=== PATIENT | male | born 1955 | race Caucasian/White ===

== ENCOUNTER 2019-11-25 07:20 | Inpatient (IN) | payer MEDICARE ==
[~2019-11-25] VITALS: Ht 167.6 cm; Wt 81.0 kg
[2019-11-25 07:27] VITALS: BP 133/67
[2019-11-25 08:13] LABS: HEMATOCRIT 37.1 % (42.0-52.0); MEAN CELL VOLUME 83.4 fl (80.0-94.0); MEAN CORPUSCULAR HGB 27.2 pg (27.0-31.0); MEAN CORPUSCULAR HGB CONC 32.6 g/dl (33.0-37.0); MEAN PLATELET VOLUME 10.1 fl (9.6-12.3); PLATELET COUNT AUTOMATED 329 10*3/uL (130-400); RED BLOOD COUNT 4.45 10*6/uL (4.50-5.90); RED CELL DISTRI WIDTH 12.4 % (0-14.5); WHITE BLOOD COUNT 21.8 10*3/uL (4.8-10.8)
[2019-11-25 08:26] LABS: ACT PARTIAL THROMBO TIME 26.2 SECONDS (20.0-32.1); INTERNATIONAL NORM RATIO 1.1 (2.0-3.5)
[2019-11-25 08:28] LABS: ALBUMIN 1.6 gm/dl (3.1-4.5); ALKALINE PHOSPHATASE 191 U/L (45-117); BUN 29 mg/dl (7-24); CHLORIDE 94 mmol/L (98-107); CREATININE 0.83 mg/dL (0.70-1.30); POTASSIUM 3.4 mmol/L (3.5-5.1); SGOT/AST 12 IU/L (3-35); SGPT/ALT 17 U/L (12-78); SODIUM 130 mmol/L (136-145); TOTAL PROTEIN 6.2 gm/dL (6.4-8.2)
[2019-11-25 08:50] LABS: PLATELET SUFFICIENCY NORMAL (NORMAL); TOTAL CELLS COUNTED 100 #CELLS
[2019-11-25 09:31] VITALS: BP 138/75
--- NOTE | 2019-11-25 10:30 | NUR ---
The assessment has been completed. RON URIOSTEGUI Time: 1029 A 64 year old MALE admitted to under services of KHRIS OLEARY DO, Pt. arrived via ambulatory from ER. Chief complaint: INJURY TO L KNEE, REPORTS HE WAS AT THE TRACK 2 WEEKS AGO AND FELL DUE TO THE FLOOR BEING STICKY . PAIN TO HIS R KNEE. STATES IT HAS GIVEN OUT ON HIM AT HOME AND HE HAS FALLEN. . RON URIOSTEGUI
[2019-11-25 10:40] VITALS: BP 134/61
--- NOTE | 2019-11-25 12:02 | NUR ---
PT TAKEN OFF FLOOR FOR MRI
--- NOTE | 2019-11-25 12:48 | NUR ---
CALLED PHARMACY TO SEND UP YSABEL
--- NOTE | 2019-11-25 12:48 | NUR ---
PT BACK FROM MRI
--- NOTE | 2019-11-25 13:55 | NUR ---
VASU MESSINA SUPERINTENDENT HORTICULTURE NOTIFIED OF MRI RESULTS. STATES SHE WILL PUT IN ORDERS.
[2019-11-25 15:24] LABS: BILIRUBIN NEGATIVE (NEGATIVE); BLOOD 1+ (NEGATIVE); CLARITY CLEAR (CLEAR); COLOR YELLOW (YELLOW); GLUCOSE 3+ (NEGATIVE); KETONE 3+ (NEGATIVE); SPECIFIC GRAVITY 1.015 (1.005-1.030)
[2019-11-25 15:25] LABS: BACTERIA 2+; LEUKO ESTERASE TRACE (NEGATIVE); MUCOUS 1+; NITRITE POSITIVE (NEGATIVE); UROBILINOGEN 0.2 E.U./dl (0.2-1.0); WBC 16-20 wbc/hpf (0-5)
--- NOTE | 2019-11-25 15:39 | NUR ---
PT MEDICATED FOR C/O 4/10 ACHING L KNEE PAIN. WILL CONTINUE TO MONITOR FOR RELIEF. VOICES NO OTHER CONCERNS. CALL LIGHT WITHIN REACH. BED ALRM ON.
[2019-11-25 16:00] VITALS: BP 128/56
--- NOTE | 2019-11-25 16:00 | NUR ---
PTS SISTER UPDATED ON PLAN OF CARE AND TRASNFER PER HIS REQUEST. QUESTIONS ANSWERED.
--- NOTE | 2019-11-25 16:30 | NUR ---
PT STATES TYLENOL MOSTLY EFFECTIVE
--- NOTE | 2019-11-25 18:27 | NUR ---
PT GIVEN MORPHINE FOR PAIN. PAIN IS IN LEFT KNEE RADIATING TO BACK OF LEG. PT RATES 7 OUT OF 10 ON SCALE
[2019-11-25 20:00] VITALS: BP 123/55
[2019-11-25 20:20] VITALS: BP 141/78
--- NOTE | 2019-11-25 20:20 | NUR ---
PATIENT ATTENDANT WILLIE CAME TO THIS RN AND STATED PATIENT SLID OFF OF THE BEDSIDE COMMODE ONTO THE FLOOR. PATIENT WAS LAYING IN THE FLOOR ON THE LEFT SIDE UPON ENTERING ROOM. PATIENT CALLED FOR HELP TO THE BEDSIDE COMMODE BUT INSISTED THE NURSES AID LEAVE FOR PRIVACY. MALIK TAPIA STOOD OUTSIDE OF THE DOOR AND WAITED FOR PATIENT TO LET HER KNOW WHEN HE WAS DONE. PATIENT DID NOT CALL FOR HELP, INSTEAD HE STATES HE SLID OFF OF THE BEDSIDE COMMODE ONTO THE FLOOR. PATIENT DENIES INJURIES OR HITTING HEAD. PATIENT WAS ASSISTED BACK INTO BED AND VITALS WNL. PATIENT WAS REMINDED THAT HE NEEDS ASSISTANCE AND TO PLEASE CALL FOR HELP. FALL RISK BAND WAS ON, STAR WAS ON THE DOOR, AND NON SLIP FOOTWEAR WAS INTACT. PATIENT VERBALIZED UNDERSTANDING. PATIENT WAS STILL INSISTING THAT THIS RN AND OLVIN KIRBY LEAVE ROOM SO PATIENT COULD STAND AND URINATE IN THE URINAL. PATIENT WAS REMINDED THAT HE NEEDS ASSISTANCE, BUT ASSURED THAT WE WOULD NOT LOOK AT HIS PRIVATE AREAS. PATIENT WAS ASSISTED BY BOTH RN'S WITH MAX ASSIST. PATIENT MADE COMFORTABLE IN BED. DENIES ANY PAIN. BED ALARM ON, BED IN LOWEST POSITION, CALL LIGHT IN REACH
--- NOTE | 2019-11-25 20:48 | NUR ---
PATIENT TRANSFERRED WITH [facility] AT THIS TIME. ALL BELONGINGS TAKEN WITH PATIENT.
--- NOTE | 2019-11-25 20:53 | NUR ---
REPORT CALLED TO ANNMARIE AT [facility] AT THIS TIME. ALL QUESTIONS ANSWERED
== END 2019-11-25 20:48 | disposition short-term general hospital (02) | DRG 913 ==
LOC: ED 07:20 → 4E 09:57 → EDHOLD 09:57 → 4E 10:18
PROVIDERS: Emergency Medicine; Registered Nurse; ADMIT Internal Medicine
DX: S89.92XA Unspecified injury of left lower leg, initial encounter (principal); E43 Unspecified severe protein-calorie malnutrition; L03.116 Cellulitis of left lower limb; N39.0 Urinary tract infection, site not specified; E87.1 Hypo-osmolality and hyponatremia; M00.9 Pyogenic arthritis, unspecified; E87.6 Hypokalemia; R73.9 Hyperglycemia, unspecified; Z80.9 Family history of malignant neoplasm, unspecified; W19.XXXA Unspecified fall, initial encounter; Y93.89 Activity, other specified; Y92.89 Other specified places as the place of occurrence of the external cause; Y99.8 Other external cause status; Z03.818 Encounter for observation for suspected exposure to other biological agents ruled out; Z68.28 Body mass index [BMI] 28.0-28.9, adult

== ENCOUNTER 2019-12-06 16:21 | Inpatient (IN) | payer MEDICARE, MEDICAID ==
[~2019-12-06] VITALS: Ht 167.6 cm; Wt 78.9 kg
[2019-12-06 16:28] VITALS: BP 138/62
[2019-12-06 17:18] LABS: BASO # 0.1 10*3/uL (0.0-0.1); BASO % 0.4 % (0.0-1.0); EOS # 0.3 10*3/uL (0.0-0.4); EOS % 1.8 % (1.0-4.0); HEMATOCRIT 30.7 % (42.0-52.0); LYMPH # 1.9 10*3/uL (1.3-4.4); LYMPH % 13.3 % (27.0-41.0); MEAN CELL VOLUME 84.3 fl (80.0-94.0); MEAN CORPUSCULAR HGB 27.2 pg (27.0-31.0); MEAN CORPUSCULAR HGB CONC 32.2 g/dl (33.0-37.0); MONO # 1.2 10*3/uL (0.1-1.0); MONO % 8.8 % (3.0-9.0); NEUT # 10.6 10*3/uL (2.3-7.9); NEUT % 74.9 % (47.0-73.0); PLATELET COUNT AUTOMATED 439 10*3/uL (130-400); RED BLOOD COUNT 3.64 10*6/uL (4.50-5.90); RED CELL DISTRI WIDTH 13.2 % (0-14.5); WHITE BLOOD COUNT 14.2 10*3/uL (4.8-10.8)
[2019-12-06 17:30] LABS: ALBUMIN 1.6 gm/dl (3.1-4.5); ALKALINE PHOSPHATASE 514 U/L (45-117); BUN 26 mg/dl (7-24); CHLORIDE 96 mmol/L (98-107); CREATININE 0.99 mg/dL (0.70-1.30); POTASSIUM 3.8 mmol/L (3.5-5.1); SGOT/AST 27 IU/L (3-35); SGPT/ALT 38 U/L (12-78); SODIUM 132 mmol/L (136-145); TOTAL PROTEIN 6.6 gm/dL (6.4-8.2); URIC ACID 4.5 mg/dL (3.5-7.2)
[2019-12-06 19:29] VITALS: BP 137/73
--- NOTE | 2019-12-06 19:40 | NUR ---
A 64, admitted to 5E, under the services of SHORTY Hernández DO with a diagnosis of CELLULITIS, HYPERGLYCEMIA, LEUKOCYTOSIS. Chief complaint is CELLULITIS. Patient arrived via bed from ER. Monitor applied. Initial assessment completed. Vital signs taken and recorded. SHORTY HERNÁNDEZ DO notified of admission to the unit. Orders received. See assessment for past medical history, medications and allergies. Patient and/or family oriented to unit. [facility] visitation policy reviewed. Clothing/patient valuable form completed. GRICELDA LIM
[2019-12-06 19:45] VITALS: BP 138/70
[2019-12-06] MEDS ORDERED: COLCHICINE0.6 M1 PO (19:58)
[2019-12-06] MEDS ORDERED: LANTUS SOL100 UNIT/1 SQ (20:00)
[2019-12-06] MEDS ORDERED: HUMALOG100 UNIT/2 SQ (20:02)
[2019-12-06] MEDS ORDERED: NAPROSYN500 MG PO (20:03)
--- NOTE | 2019-12-06 20:29 | NUR ---
DR. SAEZ NOTIFIED OF COMPLETE HOME MEDICATIONS. ALSO NOTIFIED FOR NEED FOR WOUND ORDERS.
--- NOTE | 2019-12-06 20:30 | NUR ---
PT OFF TO CT
--- NOTE | 2019-12-06 20:50 | NUR ---
PT BACK FROM CT
--- NOTE | 2019-12-06 22:00 | NUR ---
PT WATCHING TV. NO COMPLAINTS. CALL LIGHT IN REACH
--- NOTE | 2019-12-06 23:12 | NUR ---
NORCO GIVEN FOR LEFT LEG PAIN DUE TO "CELLULITIS AND GOUT" PER PT. PAIN RATED 7/10. CALL LIGHT IN REACH. WILL MONITOR FOR EFFECTIVENESS.
[2019-12-07] VITALS (10 sets, daily range): BP systolic 118–144; BP diastolic 49–71
--- NOTE | 2019-12-07 00:06 | NUR ---
PATIENT STATED NORCO WAS EFFECTIVE. WILL CONTINUE TO MONITOR.
--- NOTE | 2019-12-07 02:28 | NUR ---
Patient resting quietly with no c/o discomfort. Respirations easy and regular. Vital signs stable. No overt distress. DALJIT RYDER
--- NOTE | 2019-12-07 06:02 | NUR ---
NOTIFIED DR MAURER'S ANSWERING SERVICE OF CONSULT.
[2019-12-07 06:03] LABS: BASO # 0.1 10*3/uL (0.0-0.1); BASO % 0.3 % (0.0-1.0); EOS # 0.3 10*3/uL (0.0-0.4); EOS % 2.3 % (1.0-4.0); HEMATOCRIT 30.8 % (42.0-52.0); LYMPH # 1.8 10*3/uL (1.3-4.4); LYMPH % 11.8 % (27.0-41.0); MEAN CELL VOLUME 85.3 fl (80.0-94.0); MEAN CORPUSCULAR HGB 26.9 pg (27.0-31.0); MEAN CORPUSCULAR HGB CONC 31.5 g/dl (33.0-37.0); MEAN PLATELET VOLUME 9.2 fl (9.6-12.3); MONO # 1.3 10*3/uL (0.1-1.0); NEUT # 11.3 10*3/uL (2.3-7.9); NEUT % 75.9 % (47.0-73.0); PLATELET COUNT AUTOMATED 408 10*3/uL (130-400); RED BLOOD COUNT 3.61 10*6/uL (4.50-5.90); RED CELL DISTRI WIDTH 13.2 % (0-14.5); WHITE BLOOD COUNT 14.9 10*3/uL (4.8-10.8)
--- NOTE | 2019-12-07 06:05 | NUR ---
NOTIFIED DR CHAVEZ'S ANSWERING SERVICE OF CONSULT.
[2019-12-07 06:24] LABS: BUN 21 mg/dl (7-24); CHLORIDE 100 mmol/L (98-107); CREATININE 0.91 mg/dL (0.70-1.30); POTASSIUM 3.8 mmol/L (3.5-5.1); SODIUM 134 mmol/L (136-145)
--- NOTE | 2019-12-07 06:49 | NUR ---
NORCO GIVEN PER PATIENT REQUEST FOR COMPLAINTS OF LEFT KNEE AND LEFT LOWER EXTREMITY PAIN RATED 7/10. WILL ASSESS EFFECTIVENESS.
--- NOTE | 2019-12-07 20:55 | NUR ---
PATIENT MEDICATED WITH NORCO FOR COMPLAINTS OF LEFT LEG PAIN. WILL MONITOR FOR EFFECTIVENESS. CALL LIGHT IN REACH.
--- NOTE | 2019-12-07 21:31 | NUR ---
PATIENT MEDICATED WITH NORCO FOR COMPLAINTS OF LEFT LEG PAIN. WILL MONITOR FOR EFFECTIVENESS. CALL LIGHT IN REACH.
--- NOTE | 2019-12-07 21:34 | NUR ---
NORCO EFFECTIVE. PATIENT STATES LEG IS STARTING TO FEEL BETTER. WILL CONTINUE TO MONITOR.
[2019-12-08] VITALS: BP 118/57
--- NOTE | 2019-12-08 02:06 | NUR ---
MEDICATED WITH NORCO AT THIS TIME FOR ANKLE PAIN. WILL CONTINUE TO MONITOR.
--- NOTE | 2019-12-08 03:00 | NUR ---
NORCO EFFECTIVE. PATIENT IN BED SLEEPING AT THIS TIME.
[2019-12-08 06:32] LABS: BASO % 0.2 % (0.0-1.0); EOS # 0.3 10*3/uL (0.0-0.4); EOS % 1.8 % (1.0-4.0); HEMATOCRIT 28.2 % (42.0-52.0); LYMPH # 2.4 10*3/uL (1.3-4.4); LYMPH % 14.5 % (27.0-41.0); MEAN CELL VOLUME 87.9 fl (80.0-94.0); MEAN CORPUSCULAR HGB 27.1 pg (27.0-31.0); MEAN CORPUSCULAR HGB CONC 30.9 g/dl (33.0-37.0); MEAN PLATELET VOLUME 9.2 fl (9.6-12.3); MONO # 1.3 10*3/uL (0.1-1.0); MONO % 7.7 % (3.0-9.0); NEUT # 12.1 10*3/uL (2.3-7.9); NEUT % 74.6 % (47.0-73.0); PLATELET COUNT AUTOMATED 382 10*3/uL (130-400); RED BLOOD COUNT 3.21 10*6/uL (4.50-5.90); RED CELL DISTRI WIDTH 13.4 % (0-14.5); WHITE BLOOD COUNT 16.2 10*3/uL (4.8-10.8)
[2019-12-08 06:34] LABS: ALBUMIN 1.3 gm/dl (3.1-4.5); BUN 16 mg/dl (7-24); CHLORIDE 103 mmol/L (98-107); SODIUM 136 mmol/L (136-145)
[2019-12-08 06:38] LABS: ALKALINE PHOSPHATASE 390 U/L (45-117); CREATININE 0.94 mg/dL (0.70-1.30); SGOT/AST 27 IU/L (3-35); SGPT/ALT 30 U/L (12-78); TOTAL PROTEIN 5.9 gm/dL (6.4-8.2)
[2019-12-08 08:00] VITALS: BP 120/60
--- NOTE | 2019-12-08 09:10 | NUR ---
PT DID NOT WANT LOVENOX AT THIS TIME DUE TO UNKNOWN WITH FIRST DRESSING CHANGE POST OP. DR. CHAVEZ WAS IN TO SEE PATIENT THIS MORNING AND DISCUSS WITH PATIENT STARTING ASPIRIN TOMORROW. PT GIVEN NORCO, PT STATES PAIN MINIMAL AT THIS TIME HOWEVER, PHYSICIAN WANTS PATIENT TO GET UP AND MOVE, PT ANTICIPATING PAIN WITH MOVEMENT. PER DR. CHAVEZ, WOUND CARE TO CHANGE FIRST DRESSING AND ASSESS NEED/WOUND CARE DAILY CHANGE
--- NOTE | 2019-12-08 09:31 | NUR ---
DISCUSS DRESSING CHANGE WITH DR. CHAVEZ, HE WOULD LIKE WOUND CARE NURSE TO DO FIRST DRESSING CHANGE TODAY, AWARE ONLY HERE THE MORNING HOURS, OKAY TO CHANGE DRESSING THIS MORNING. DR. CHAVEZ STATES TO PULL CURRENT PACKING, THEN PACK WITH NS KERLEX, THERE IS A TUNNEL FROM LOWER LEG TO POPLETIAL WOUND AREA TO PACK WELL. WILL DISCUSS WITH WOUND CARE NURSES SOHAM.
--- NOTE | 2019-12-08 10:01 | NUR ---
MORPHINE GIVEN PRIOR TO DRESSING CHANGE
--- NOTE | 2019-12-08 10:19 | NUR ---
DR. CHAVEZ IN TO SEE PATIENT, WOUND CARE IN WITH PATIENT, AREA BLEEDING
--- NOTE | 2019-12-08 11:20 | NUR ---
PHYSICAL THERAPY PT evaluation attempted. Pt not appropriate at this time per nursing, due to LLE/calf bleeding. Nursing recommendation to return at a later date to complete a PT evaluation. Fuentes Rose, PT, DPT
[2019-12-08 12:00] VITALS: BP 100/48
--- NOTE | 2019-12-08 12:00 | NUR ---
Bone Puller in to talk to patient. Patient states lives at home alone with his family checking in on him. There are 30 steps in the home. Physician: [facility] Pharmacy: [facility] Home health services: [facility] currently and would like to resume those services upon discharge Patient's level of ADLs: MINIMAL ASSIST Patient has working utilities: yes DME: walker Follow-up physician's appointment after d/c: will be made by the hospitalist nurse director upon discharge Does patient want to access PORTAL?: no Discharge plan discussed with patient. He lives at home alone with his family checking in on him. He says there are 2.5 [address] of stairs as he lives on the 3rd level. He states he is independent in his ADLs and uses a walker for ambulation. Discussed short term rehab and he refuses. Discussed home health care services and he currently has [facility] and would like to resume those services upon discharge. He states the ID doctor said they were going to put a PICC line in him and he would have home IV antibiotics. Asked who was going to learn how to administer and he said he or his sister would. He plans on living with his sister upon discharge until he is back on his feet. When medically stable he will be discharged to home with the resumption of his [facility]. He states his sister, Janelle Tapia, will provide transportation on discharge. FERNANDO HARPER
--- NOTE | 2019-12-08 12:50 | NUR ---
PT STATES NO PAIN AT THIS TIME. DRESSING LEFT LOWER EXTREMITY DRY AND INTACT.
--- NOTE | 2019-12-08 14:24 | NUR ---
Hep Lock discontinued. Site asymptomatic. Pressure applied. Sterile dressing applied. HISSOM,RON IV started right hand with #22 protective cath after 1 attempts. Site prepped with Chloroprep. Sterile dressing applied. Patient tolerated procedure well. IV infusing at 80 cc/hr. HISSOM,RON
[2019-12-08 16:00] VITALS: BP 148/69
[2019-12-08 20:00] VITALS: BP 126/57
--- NOTE | 2019-12-08 21:36 | NUR ---
PATIENT MEDICATED WITH NORCO FOR LEG PAIN D/T GETTING WASHED UP. WILL CONTINUE TO MONITOR.
--- NOTE | 2019-12-08 21:55 | NUR ---
PATIENT PULLED IV OUT WHILE GETTING WASHED UP. NEW 22G INSERTED INTO RIGHT ARM ON FIRST ATTEMPT WITHOUT DIFFICULTY WITH GOOD BLOOD RETURN. PATIENT TOLERATED WELL. WILL CONTINUE TO MONITOR. CALL LIGHT IN REACH.
--- NOTE | 2019-12-08 22:30 | NUR ---
NORCO EFFECTIVE. PATIENT STATED LEG IS BARELY HURTING AT ALL NOW. WILL CONTINUE TO MONITOR.
[2019-12-09] VITALS (9 sets, daily range): BP systolic 88–142; BP diastolic 42–72
[2019-12-09 06:23] LABS: BASO # 0.1 10*3/uL (0.0-0.1); BASO % 0.3 % (0.0-1.0); EOS # 0.4 10*3/uL (0.0-0.4); EOS % 2.7 % (1.0-4.0); HEMATOCRIT 28.2 % (42.0-52.0); LYMPH # 2.6 10*3/uL (1.3-4.4); LYMPH % 16.4 % (27.0-41.0); MEAN CELL VOLUME 86.5 fl (80.0-94.0); MEAN CORPUSCULAR HGB CONC 31.2 g/dl (33.0-37.0); MEAN PLATELET VOLUME 8.8 fl (9.6-12.3); MONO # 1.1 10*3/uL (0.1-1.0); MONO % 6.8 % (3.0-9.0); NEUT # 11.5 10*3/uL (2.3-7.9); NEUT % 72.2 % (47.0-73.0); PLATELET COUNT AUTOMATED 418 10*3/uL (130-400); RED BLOOD COUNT 3.26 10*6/uL (4.50-5.90); RED CELL DISTRI WIDTH 13.2 % (0-14.5)
[2019-12-09 06:43] LABS: ALBUMIN 1.4 gm/dl (3.1-4.5); ALKALINE PHOSPHATASE 435 U/L (45-117); BUN 18 mg/dl (7-24); CHLORIDE 101 mmol/L (98-107); CREATININE 0.96 mg/dL (0.70-1.30); POTASSIUM 3.8 mmol/L (3.5-5.1); SGOT/AST 25 IU/L (3-35); SGPT/ALT 28 U/L (12-78); SODIUM 134 mmol/L (136-145); TOTAL PROTEIN 6.1 gm/dL (6.4-8.2)
--- NOTE | 2019-12-09 07:50 | NUR ---
MEDICATED WITH PRN IV MORPHINE FOR C/O BACK PAIN. REMAINS NPO FOR GHISLAINE TODAY AT 1030 AM.
--- NOTE | 2019-12-09 08:10 | NUR ---
PRN IV MORPHINE EFFECTIVE, PER PATIENT.
--- NOTE | 2019-12-09 09:28 | NUR ---
PATIENT TO OR BY BED FOR GHISLAINE PROCEDURE.
--- NOTE | 2019-12-09 09:30 | NUR ---
CM in to see patient. He is currently being wheeled out by bed to go to surgery for his GHISLAINE. Will follow up at a later time.
--- NOTE | 2019-12-09 09:45 | NUR ---
Discussed discharge planning with Dr. Lopez. She states at this time the patient is going to need Nafcillin every 4 hours. Depending on what the GHISLAINE shows the length could changed to 6 weeks. She asked about the patient having an IV pump at home. Informed when there is a prescription CM will send it to [facility] for cost as the patient only has Medicare and Medicare doesn't cover home IVs. She states patient is going to live with an older sister who patient stated to her is not able to help take care of him. Awaiting script for cost then will discuss with patient short term rehab.
[2019-12-09] MEDS ORDERED: NAFCILLIN2 GM IV (09:49)
--- NOTE | 2019-12-09 11:15 | NUR ---
OT NOTE Occupational therapy order received. Attempted to see patient however he was declining an OT evaluation at this time. He reports he just returned from his test, was in increased LLE pain, and wanted to order/eat his lunch. Patient was agreeable an OT eval later this date. Will follow up, thank you. Gale Roberts, OTR/L
--- NOTE | 2019-12-09 11:16 | NUR ---
Received prescription from Dr. Lopez for Nafcillin 2 gm IV q4h x 4 weeks. Prescription sent to [email or web address]. Awaiting response.
--- NOTE | 2019-12-09 11:19 | NUR ---
CM in to see patient. He is currently not in his room. Will follow up at a later time.
--- NOTE | 2019-12-09 11:40 | NUR ---
PHYSICAL THERAPY Attempted to see pt at the bedside had just returned from test (GHISLAINE) and wanting to eat (had been NPO) and a pain pill for LLE currently at 8/ "my leg is throbbing". Pt repositioned in bed for lunch with LLE elevated/positioned on pillow for comfort spoke w primary nurse reg pt request for lunch and pain meds. Will follow in the afternoon pt agreeable. Annalee Diaz PT
--- NOTE | 2019-12-09 11:44 | NUR ---
Received call from Baylee at [facility]. As patient lives in [place] she is going to have the referral sent to their [place] office. She states patient will have the drug and core blower operator cost for home. If he goes to a facility he will have a 20% cost.
--- NOTE | 2019-12-09 11:55 | NUR ---
PATIENT RETURNED FROM GHISLAINE PROCEDURE, RESUMING MEDS AND DIET. MEDICATED AT THIS TIME WITH PRN PO NORCO FOR LEFT LEG PAIN.
--- NOTE | 2019-12-09 12:46 | NUR ---
CM in to see patient. Discussed Medicare and the possibility of him having a co-pay, shank tapper cost, and drug cost. He states he is not able to afford extra cost. Asked who was going to do his dressing changes at home on the days that home health is not there. He states he doesn't know because his sister is older than him and has her own health issues. Discussed short term rehab and he is agreeable and would like to go to one of the [facility] facilities. pupil personnel worker notified. Awaiting drug cost.
--- NOTE | 2019-12-09 12:50 | NUR ---
PRN PO NORCO EFFECTIVE FOR PAIN, PER PATIENT.
--- NOTE | 2019-12-09 13:17 | NUR ---
Occupational Therapy evaluation completed on five with full evaluation to follow. Recommend occupational therapy per plan of care and SNF upon discharge. Thank you for this referral. Gale Roberts OTR/L
--- NOTE | 2019-12-09 14:28 | NUR ---
MEDICATED WITH PRN IV MORPHINE FOR LEFT LEG PAIN PRIOR TO DRESSING CHANGE WITH DR. CHAVEZ SCHEDULED AT 3PM.
--- NOTE | 2019-12-09 14:53 | NUR ---
Received call from Zena at [facility] in [place]. Patient has Medicare but not Medicare D so he would be considered self pay. the cost would be $121 daily. Discussed cost of $121 per day with patient and he is not able to pay that cost. Discussed referral being sent to [facility] and he is agreeable as he states he knows the colleter. second worker following.
--- NOTE | 2019-12-09 14:56 | NUR ---
Attempted to reach Zena at [facility] ([phone]) regarding patient not able to afford the home IVs and is requesting to be referred to [facility]. Left voicemail. Awaiting return call.
--- NOTE | 2019-12-09 15:19 | NUR ---
DR. CHAVEZ IN TO SEE PATIENT AND FOR DRESSING CHANGE TO LLE. PURULENT DRAINAGE NOTED TO THE PACKING, WOUND RE-PACKED WITH KERLIX GAUZE MOISTENED WITH NSS, APPLIED 4X4, ABD'S AND JUDY WRAPS. PER DR. CHAVEZ, PATIENT WILL NEED TO GO TO SURGERY FOR ANOTHER I & D PROCEDURE AT 0730 TOMORROW AND WILL BE NPO MIDNIGHT, BLOOD THINNERS ON HOLD. LOVENOX WAS NOT GIVEN EARLIER TODAY DUE TO LARGE AMOUNTS OF SEROSANGUINOUS DRAINAGE THROUGHOUT YESTERDAY AND TODAY.
--- NOTE | 2019-12-09 15:33 | NUR ---
PHYSICAL THERAPY Physical Therapy evaluation completed on 5th floor with full evaluation to follow. Recommend physical therapy per plan of care and SNF upon discharge. Thank you for this referral. Chapo Huber SPT Annalee Diaz PT
--- NOTE | 2019-12-09 16:30 | NUR ---
PT RESTING IN BED/ NO DISTRESS NOTED. WILL MONITOR NO VOICED C/O.
--- NOTE | 2019-12-09 23:24 | NUR ---
PATIENT MEDICATED WITH NORCO FOR COMPLAINTS OF HIP AND LEG PAIN. WILL CONTINUE TO MONITOR. CALL LIGHT IN REACH.
[2019-12-10] VITALS (10 sets, daily range): BP systolic 117–168; BP diastolic 55–85
--- NOTE | 2019-12-10 00:15 | NUR ---
NORCO EFFECTIVE. PATIENT IN BED WITH EYES CLOSED AT THIS TIME. NO SIGNS OR SYMPTOMS OF DISTRESS NOTED.
[2019-12-10 06:31] LABS: BASO # 0.1 10*3/uL (0.0-0.1); BASO % 0.4 % (0.0-1.0); EOS # 0.5 10*3/uL (0.0-0.4); EOS % 3.6 % (1.0-4.0); HEMATOCRIT 28.4 % (42.0-52.0); LYMPH # 2.7 10*3/uL (1.3-4.4); LYMPH % 19.1 % (27.0-41.0); MEAN CELL VOLUME 87.7 fl (80.0-94.0); MEAN CORPUSCULAR HGB 27.2 pg (27.0-31.0); MONO # 0.9 10*3/uL (0.1-1.0); MONO % 6.6 % (3.0-9.0); NEUT # 9.7 10*3/uL (2.3-7.9); NEUT % 68.8 % (47.0-73.0); PLATELET COUNT AUTOMATED 425 10*3/uL (130-400); RED BLOOD COUNT 3.24 10*6/uL (4.50-5.90); RED CELL DISTRI WIDTH 13.4 % (0-14.5); WHITE BLOOD COUNT 14.1 10*3/uL (4.8-10.8)
[2019-12-10 06:56] LABS: BUN 16 mg/dl (7-24); CHLORIDE 102 mmol/L (98-107); CREATININE 0.83 mg/dL (0.70-1.30); POTASSIUM 3.4 mmol/L (3.5-5.1); SODIUM 134 mmol/L (136-145)
--- NOTE | 2019-12-10 07:17 | NUR ---
DR. SAEZ NOTIFIED OF CRITICAL CALCIUM LEVEL OF 6.9.
--- NOTE | 2019-12-10 09:00 | NUR ---
CM in to see patient. He is currently not in his room. Will follow up at a later time. He has been referred to [facility]. winery worker following for referral.
--- NOTE | 2019-12-10 09:21 | NUR ---
OT NOTE Attempted to see pt this A.M. for OT session and upon arrival pt was out of the room for a medical procedure. Will check back at a later time and continue with POC as able. JERONIMO Zheng
--- NOTE | 2019-12-10 10:55 | NUR ---
CHANGE ADVISOR FAXED REFERRAL TO [facility]
--- NOTE | 2019-12-10 11:45 | NUR ---
PT REQUESTED AND GIVEN NORCO FOR C/O LEFT LE PAIN PT RATES PAIN 8/10 WILL MONITOR
--- NOTE | 2019-12-10 13:09 | NUR ---
PHYSICAL THERAPY Patient was in surgery at 11:00 am. wILL CHECK BACK LATER THIS AFTERNOON. MELY RUELAS DIRECTOR OF CAPITAL GIVING
--- NOTE | 2019-12-10 13:34 | NUR ---
OT NOTE Attempted to see pt this P.M. for OT session. Upon arrival pt was supine in bed with reports of just returning from surgery for his LLE. Pt declined therapy at this time stating "It just took too much out of me and now I am exhausted." Pt requesting to rest at this time. Will check back at a later time/date and continue with POC as able. JERONIMO Zheng
--- NOTE | 2019-12-10 14:08 | NUR ---
PHYSICAL THERAPY TREATMENT TIME: IN 1:24 PM PRESENTATION: Patient declined treatment this PM because he just had surgery by Dr. Rossa on his L LE. Patient says the surgery took too much out of him. Wants to do therapy tomorrow. Will check back tomorrow. MELY العلي ELECTROENCEPHALOGRAPHIC TECHNOLOGIST
--- NOTE | 2019-12-10 17:31 | NUR ---
PT REQUESTED AND GIVEN NORCO FOR C/O LEFT LE PAIN PT RATES PAIN 8/10 WILL MONITOR
--- NOTE | 2019-12-10 18:00 | NUR ---
[facility]
--- NOTE | 2019-12-10 19:30 | NUR ---
PATIENT RESTING IN BED. DRESSING INTACT TO LEFT LOWER EXTREMITY. VOICES NO CONCERNS AT THIS TIME. ASSESSMENT COMPLETE. CALL LIGHT IN REACH.
--- NOTE | 2019-12-10 22:25 | NUR ---
MEDICATED WITH PRN NORCO FOR CO LEFT LOWER LEG PAIN RATED A 5/10. WILL ASSESS EFFECTIVENESS.
--- NOTE | 2019-12-10 23:02 | NUR ---
Shift chart check completed.
--- NOTE | 2019-12-10 23:25 | NUR ---
NORCO EFFECTIVE PER PATIENT.
--- NOTE | 2019-12-10 23:52 | NUR ---
MEDICATED WITH PRN RESTORIL PER PATIENT REQUEST FOR TROUBLE SLEEPING.
[2019-12-11] VITALS: BP 111/62
--- NOTE | 2019-12-11 00:52 | NUR ---
RESTORIL NOT VERY EFFECTIVE PER PATIENT. PATIENT STATES HE NAPPED FOR 5 HOURS TODAY SO THIS IS PROBABLY WHY.
--- NOTE | 2019-12-11 02:30 | NUR ---
PATIENTS BED CHANGED AND PATIENT REPOSITIONED WITH KATIE GAN AT THIS TIME. PATIENT WAS ASKED IF HE WANTED TO GET CLEANED UP A FEW TIMES THROUGHTOUT THE NIGHT AND PATIENT STILL STATING HE WOULD LIKE TO JUST WAIT UNTIL TOMORROW.
--- NOTE | 2019-12-11 04:55 | NUR ---
MEDICATED WITH PRN NORCO FOR CO LEFT LEG PAIN RATED AN 8/10. WILL ASSESS EFFECTIVENESS.
--- NOTE | 2019-12-11 05:55 | NUR ---
PATIENT SLEEPING, RESPS EASY AND REGULAR. NORCO APPEARS TO BE EFFECTIVE. CALL LIGHT IN REACH.
[2019-12-11 07:05] LABS: BASO % 0.3 % (0.0-1.0); EOS # 0.5 10*3/uL (0.0-0.4); EOS % 3.5 % (1.0-4.0); HEMATOCRIT 22.9 % (42.0-52.0); LYMPH # 2.3 10*3/uL (1.3-4.4); LYMPH % 17.5 % (27.0-41.0); MEAN CELL VOLUME 86.1 fl (80.0-94.0); MEAN CORPUSCULAR HGB 27.1 pg (27.0-31.0); MEAN CORPUSCULAR HGB CONC 31.4 g/dl (33.0-37.0); MEAN PLATELET VOLUME 8.8 fl (9.6-12.3); MONO # 0.9 10*3/uL (0.1-1.0); MONO % 7.2 % (3.0-9.0); PLATELET COUNT AUTOMATED 377 10*3/uL (130-400); RED BLOOD COUNT 2.66 10*6/uL (4.50-5.90); RED CELL DISTRI WIDTH 13.5 % (0-14.5); WHITE BLOOD COUNT 12.8 10*3/uL (4.8-10.8)
--- NOTE | 2019-12-11 07:22 | NUR ---
NOTIFIED DR BORJAS OF CRITICAL CALCIUM OF 6.7.
[2019-12-11 07:28] LABS: BUN 13 mg/dl (7-24); CHLORIDE 105 mmol/L (98-107); CREATININE 0.77 mg/dL (0.70-1.30); POTASSIUM 3.5 mmol/L (3.5-5.1); SODIUM 136 mmol/L (136-145)
[2019-12-11 08:00] VITALS: BP 131/67
--- NOTE | 2019-12-11 08:49 | NUR ---
QUAIL FARMER COMPLETED HENS.
--- NOTE | 2019-12-11 09:00 | NUR ---
CM in to see patient. No new needs or request at this time. When medically stable he can be [facility] to [facility]. family assessment worker following.
--- NOTE | 2019-12-11 09:06 | NUR ---
PATIENT HAS BEEN ACCEPTED TO [facility]. PATIENT CAN ADMIT TO [facility] ON 12/12/2019 IF MEDICALLY STABLE.
--- NOTE | 2019-12-11 09:11 | NUR ---
DR CHAVEZ ROUNDED AND SEEN PT. PER DR CHAVEZ DRESSING CHANGE TIME IS NOON AND THIS RN WILL BEGIN DRESSING CHANGE PER HIS ORDER.
--- NOTE | 2019-12-11 09:53 | NUR ---
NORCO 5/325 MG GIVEN FOR C/O PAIN TO LL LEG.11/16.
--- NOTE | 2019-12-11 11:13 | NUR ---
OT NOTE Pt was seen this A.M. 1:1 for 15 minute OT session. Upon arrival pt was supine in bed. Pt identified by name and and had no complaints at this time. Pt transferred supine to sit EOB with SBA. Sit to stand completed from bed level with Baljit X 2 and use of w/w for UE support. Functional mobility was then completed to the bathroom with CGA and use of w/w. There he transferred on to the standard commode with CGA and use of grab bar for UE support. Pt was left sitting upright in the bathroom under patient attendent care for a bath. Will check back at a later time this date to continue with POC as able. Continue with rec D/C plan to SNF. DOROTHY Zheng/Jamee
--- NOTE | 2019-12-11 11:35 | NUR ---
PHYSICAL THERAPY TREATMENT TIME: IN 9:54 AM 20 MINUTES TOTAL PRESENTATION: Patient was supine in bed Head of bed elevated Bed alarm on No spO2 No IVs COMPLAINTS: Minimal L LE pain 2/10 TRANSFERS: Patient is L LE WBAT , however this PAYROLL AND BENEFITS SPECIALIST kept him at NWB until I hear from the Doctor , being that he just had surgery yesterday. Supine to sitting EOB: SBA Sitting on EOB: SBA STS from EOB: MIN A X 2 Verbal cues for pushing off the bed with hands and ,maintaining the NWB on the L LE. The nurse DOES NOT know the wt bearing status for sure. STS <> from COMMODE: MIN A X 2 TRANSFERRED back to supine in bed MIN A X 2 TREATMENT: Patient performed gait 12' X 2 <> commode in bathroom. RESPONSE TO TREATMENT: Patient tolerated the ambulation very well with verbal cues required for upright posture, locking knees into extension and staying within NE of Walker. Patient was able to maintain the NWB as he ambulated ,until I hear the WBAT is still appropriate for the L LE. Patient transfers with MIN A X 2 from a seated position. Patient with minimal pain the entire treatment. CONCLUSION: Patient left supine in bed with head of bed elevated. Call light within reach Bed alarm activated. Tray table beside patient EDITH MCCARTY present with patient when this PAYROLL AND BENEFITS SPECIALIST left room. MELY العلي PAYROLL AND BENEFITS SPECIALIST
[2019-12-11 12:00] VITALS: BP 108/52
--- NOTE | 2019-12-11 12:00 | NUR ---
DRESSING CHANGE COMPLETED TO LEFT LEG.PACKING COMPLETED PER DR CHAVEZ. PT TOLERATED WELL.PT TOLERATED WELL. PER PHYSICIAN PT SURGICAL SIGHT TO LEFT CALF "LOOKS GOOD".WOUND BED PINK. NO PURULENT DRAINAGE NOTED. NO ODOR. PER DR CHAVEZ PT WILL NOT BE GOING BACK TO OR TOMORROW. ORDER TO D/C NPO STATUS FOR 12/11 AND PT TO CONTINUE WITH 1800 ADA DIET.
--- NOTE | 2019-12-11 12:06 | NUR ---
MORPHINE 2 MG GIVEN PRIOR TO DRESSING CHANGE TO LEFT LOWER POSTERIOR EXTREMITY.
--- NOTE | 2019-12-11 14:31 | NUR ---
PHYSICAL THERAPY TREATMENT TIME: 1:30 PM 21 MINUTES TOTAL PRESENTATION: Patient was supine in bed with head of bed elevated. Bed alarm on Informed consent given Patient identified by name and on wristband No IVs No spO2 COMPLAINTS/INFO: Minimal pain in the L LE Patient does not have to go to surgery tomorrow according to the patient. Dr. Rosas cleaned out the wound at noon today again and determined that the surgery scheduled for tomorrow was not necessary. OLVIN NICHOLS stated that the patient was WBAT per DR. Rosas. TRANSFERS: Supine to sitting on EOB: MIN A X 1 Sitting EOB: SBA STS from EOB: MIN A X 2 TREATMENT: Patient ambulated with Wh Walker and CGA - Close Supervision for 60' x 1. Patient is WBAT on the L LE Verbal cues for locking knees into extension to prevent L knee buckle. Verbal cues for upright posture, pushing down on walker with hands and increased step-length. RESPONSE TO TREATMENT: Patient tolerated treatment very well this was his best session yet. Patient had no increased pain in the L LE with gait. MELY العلي STRUCTURAL ENGINEERING DRAFTING OFFICER
--- NOTE | 2019-12-11 14:55 | NUR ---
[facility] NOTIFIED ME THAT THEY ARE UNABLE TO PLACE MR PRATT PICC.PER TIM HE WILL HAVE IT PLACED TOMORROW MORNING.
--- NOTE | 2019-12-11 15:05 | NUR ---
NORCO 5/325 MG GIVEN FOR C/O PAIN TO LLE,11/16.
--- NOTE | 2019-12-11 15:10 | NUR ---
OT NOTE Attempted to see pt this P.M. for second OT session and upon arrival pt was supine in bed. Pt declined therapy at this time reporting "i just finished with physical therapy and am wanting to rest" pt continued to decline all tasks presented with. Will continue with POC as able. JERONIMO Zheng
--- NOTE | 2019-12-11 15:31 | NUR ---
VERBAL FOR I/S AND PURPOSE. PT STATES HE DOES NOT WANT TO DO I/S AT THIS TIME, PT. STATES HE HAS DONE BEFORE AND HAS NO QUESTIONS. I/S IS AT BEDSIDE.
[2019-12-11 16:00] VITALS: BP 122/60
--- NOTE | 2019-12-11 19:39 | NUR ---
CALLED TO CLARIFY DRESSING CHANGE. PER NOTHING CHANGES FOR THE DRESSING CHANGE EXCEPT NOW IT IS BID.
--- NOTE | 2019-12-11 19:47 | NUR ---
24 HR chart check completed.
--- NOTE | 2019-12-11 19:50 | NUR ---
MEDICATED WITH PRN NORCO FOR CO LEFT LEG PAIN RATED AN 8/10. WILL ASSESS EFFECTIVENESS. CALL LIGHT IN REACH.
[2019-12-11 20:00] VITALS: BP 132/54
--- NOTE | 2019-12-11 20:50 | NUR ---
NORCO EFFECTIVE PER PATIENT.
--- NOTE | 2019-12-11 22:39 | NUR ---
MEDICATED WITH PRN MORPHINE AT THIS TIME BEFORE CHANGING PATIENTS DRESSING TO LEFT LEG.
--- NOTE | 2019-12-11 22:39 | NUR ---
DRESSING CHANGE TO LEFT LEG DONE AT THIS TIME PER ORDER. OLVIN RUSSELL AND OLVIN MADISON ASSISTED ME WITH THIS DRESSING CHANGE. PATIENT WAS MEDICATED WITH PRN MORPHINE BEFORE BEGINNING THE DRESSING CHANGE.
--- NOTE | 2019-12-11 23:39 | NUR ---
PER PATIENT MORPHINE WAS EFFECTIVE FOR DRESSING CHANGE.
[2019-12-12] VITALS: BP 128/55
--- NOTE | 2019-12-12 00:07 | NUR ---
MEDICATED WITH PRN NORCO FOR CO LEFT LEG PAIN RATED A 6/10. WILL ASSESS EFFECTIVENESS. CALL LIGHT IN REACH.
--- NOTE | 2019-12-12 01:07 | NUR ---
PATIENT SLEEPING, RESPS EASY AND REGULAR. NORCO APPEARS TO BE EFFECTIVE.
--- NOTE | 2019-12-12 05:06 | NUR ---
MEDICATED WITH PRN NORCO FOR CO LEFT LEG PAIN RATED A 6/10. WILL ASSESS EFFECTIVENESS.
--- NOTE | 2019-12-12 06:06 | NUR ---
NORCO EFFECTIVE PER PATIENT.
[2019-12-12 06:20] LABS: BASO # 0.1 10*3/uL (0.0-0.1); BASO % 0.5 % (0.0-1.0); EOS # 0.5 10*3/uL (0.0-0.4); EOS % 4.3 % (1.0-4.0); HEMATOCRIT 23.6 % (42.0-52.0); LYMPH # 2.9 10*3/uL (1.3-4.4); LYMPH % 25.4 % (27.0-41.0); MEAN CELL VOLUME 87.1 fl (80.0-94.0); MEAN CORPUSCULAR HGB 27.7 pg (27.0-31.0); MEAN CORPUSCULAR HGB CONC 31.8 g/dl (33.0-37.0); MEAN PLATELET VOLUME 8.5 fl (9.6-12.3); MONO # 0.8 10*3/uL (0.1-1.0); MONO % 7.4 % (3.0-9.0); NEUT # 6.7 10*3/uL (2.3-7.9); NEUT % 59.7 % (47.0-73.0); PLATELET COUNT AUTOMATED 379 10*3/uL (130-400); RED BLOOD COUNT 2.71 10*6/uL (4.50-5.90); RED CELL DISTRI WIDTH 13.9 % (0-14.5); WHITE BLOOD COUNT 11.2 10*3/uL (4.8-10.8)
[2019-12-12 06:34] LABS: ALBUMIN 1.2 gm/dl (3.1-4.5); ALKALINE PHOSPHATASE 265 U/L (45-117); BUN 16 mg/dl (7-24); CHLORIDE 105 mmol/L (98-107); CREATININE 1.01 mg/dL (0.70-1.30); POTASSIUM 3.9 mmol/L (3.5-5.1); SGOT/AST 13 IU/L (3-35); SGPT/ALT 11 U/L (12-78); SODIUM 138 mmol/L (136-145); TOTAL PROTEIN 5.4 gm/dL (6.4-8.2)
--- NOTE | 2019-12-12 07:30 | NUR ---
PHYSICAL THERAPY Patient seen this am 1;1 for therapy visit and was supine in bed upon therapist arrival. Patient identified by name / and reports only mild 1/10 L LE pain. Patient transfers supine to sit EOB with SBA and sit to stand MIN A, with use of wh walker standing support. Patient ambulated 15'x 1 to bathroom, then additional 30'x 1, wh walker, CGA, demonstrating slow nghia, "step to" gait pattern and needed several brief standing rest breaks due to quick onset of fatigue. Patient also very unsteady during 180 turns, requiring v/c to improve standing walker safety awareness. Patient returned to bedside chair and remained with call light, tray table, telephone and body alarm for safety. Patient rated L LE pain 3/10 following treatment and will continue per POC as tolerated. Total treatment time 16 minutes. Ryan Harrington, CABIN CLEANER
--- NOTE | 2019-12-12 07:41 | NUR ---
OCCUPATIONAL THERAPY CO-SIGN I approve of the Occupational Therapy notes written above. MARCO PATE, OTR/L
--- NOTE | 2019-12-12 07:55 | NUR ---
OT NOTE Pt was laying supine in bed with head elevated agreeable to 30 minute OT session. Identified by name and date of with 2/10 left knee pain. Transfer supine to EOB SBA. Sit-stand Baljit with w/w for UB supportdue to LOB when standing on left leg. Functional mobility from EOB to bathroom CGA with w/w for saftey. Transferring on commode CGA with grab bar and w/w. Transferring off commode MODA x1 due to low rise commode. Functional mobility from commode to sink CGA with w/w. Pt was able to tolerate approx 2 minutes before needing to sit. Pt completed oral hygiene and grooming while seated on chair at sink level with SBA. Pt requires increased time when completing tasks due to decreased energy and slow rate of performance . Functional mobility from bathroom to recliner CGA with w/w. Pt was left in recliner with call light in reach. Continue d/c recommended SNF. GABRIEL Martinez/DOROTHY Boo/Jamee
[2019-12-12 08:00] VITALS: BP 130/57
--- NOTE | 2019-12-12 08:30 | NUR ---
CM in to see patient. No new needs or request at this time. When medically stable he can be [facility]. airplane woodworker following.
--- NOTE | 2019-12-12 09:45 | NUR ---
PHYSICAL THERAPY Patient seen this am for second therapy visit and was sitting up in bedside chair and reporting 3/10 L calf pain. Patient identified by name / and transfers sit to stand from low chair surface, MIN A x 2, including "rocking" motion to safely complete transfer without retrograde posture. Patient ambulated 35'x 1, wh walker, CGA, demonstrating "step to" nghia and stated he his L leg felt a little stiffer due to sitting up in chair for several hours. Patient was still a little unsteady during 180 degree turn around and returned to spine in bed with mild fatigue. Patient remained in bed reporting no change in pain c/o, 3/10, with call light, tray table, telephone and bed alarm for safety. Will continue per POC as tolerated, total treatment time 16 minutes. Ryan Harrington, OLIVE PACKER
--- NOTE | 2019-12-12 10:00 | NUR ---
OT NOTE Pt up in recliner agreeable to 10 minute OT session. Identified by name and date of with complaints of 06/16 to date. Sit-stand Baljit with rocking movement and use of w/w for UB support. Functional mobility from recliner to hallway and back to EOB CGA with w/w for safety. Pt was able to tolerate approx 5 minutes of activity before fatigue. Pt was able to position self in bed at SBA. Pt left in bed with alarm on and call light in reach. Continue d/c recommended SNF. GABRIEL Martinez/DOROTHY Boo/Jamee
[2019-12-12 12:00] VITALS: BP 128/59
--- NOTE | 2019-12-12 12:06 | NUR ---
MORPHINE 2 MG GIVEN PRIOR TO DRESSING CHANGE.
--- NOTE | 2019-12-12 12:36 | NUR ---
DRESSING CHANGE COMPLETED PER DR CHAVEZ TO RIGHT POSTERIOR LEG.PT TOLERATED WELL. WHILE IRRIGATING POSTERIOR KNEE TO TUNNELED ASRE BEHING HAMSTRING TENDON,YELLOW/RUTH DRAINAGE PUDDLED INSIDE WOUND. DR CHAVEZ CLEANSED WITH NORMAL SALINE AND REPACKED WITH ONE ROLL OF KURLEX,UNCUT.COVERED WITH 4X4'S AND ABD AND WRAPPED WITH JUDY WRAP. ORDER RECIEVED FOR PM SHIFT TO CALL HIM PRIOR TO DRESSING CHANGE TONIGHT.
--- NOTE | 2019-12-12 13:05 | NUR ---
PAINT FACTORY WORKER FAXED UPDATES TO [facility].
--- NOTE | 2019-12-12 14:15 | NUR ---
NORCO 5/325 GIVEN FOR C/O PAIN TO RLE,11/16.
--- NOTE | 2019-12-12 14:19 | NUR ---
NORCO 5/325 MG GIVEN FOR C/O PAIN TO RIGHT LOWER LEG,11/16.
--- NOTE | 2019-12-12 14:31 | NUR ---
PHYSICAL THERAPY CO-SIGN I approve of the Physical Therapy notes written above. Annalee Diaz PT
--- NOTE | 2019-12-12 14:40 | NUR ---
OCCUPATIONAL THERAPY CO-SIGN I approve of the Occupational Therapy notes written above. MARCO PATE, OTR/L
--- NOTE | 2019-12-12 14:45 | NUR ---
A 64, admitted to 5E, under the services of SHORTY Hernández DO with a diagnosis of GI BLEED,AND DIZZINESS. Chief complaint is BLOODY FOUL SMELLING STOOL.. Patient arrived via from ER. Monitor applied. Initial assessment completed. Vital signs taken and recorded. SHORTY HERNÁNDEZ DO notified of admission to the unit. Orders received. See assessment for past medical history, medications and allergies. Patient and/or family oriented to unit. [facility] visitation policy reviewed. Clothing/patient valuable form completed. KRISTAL FULLER
[2019-12-12 16:00] VITALS: BP 132/67
[2019-12-12 20:00] VITALS: BP 125/50
--- NOTE | 2019-12-12 20:14 | NUR ---
NORCO 5/325 MG GIVEN FOR C/O LEFT LEG PAIN,11/16.
--- NOTE | 2019-12-12 21:00 | NUR ---
PER PATIENT PRN NORCO WAS EFFECTIVE FOR DECREASE IN LEFT LEG PAIN. A&O X3, CALL LIGHT WITHIN REACH, WILL CONTINUE TO MONITOR.
--- NOTE | 2019-12-12 23:10 | NUR ---
SPOKE WITH DR. CHAVEZ AT THIS TIME IN REFERENCE TO PATIENT DRESSING CHANGE PER HIS REQUEST. ORDERS RECEIVED TO NOTIFY HIM OF ANY ABNORMAL COLORED DRAINAGE OR ODOR WHEN DRESSING CHANGE WAS COMPLETED.
--- NOTE | 2019-12-12 23:22 | NUR ---
PRN IV MORPHINE GIVEN AT THIS TIME FOR LEFT LEG WOUND DRESSING CHANGE AND PACKING. PATIENT A&O X4.
--- NOTE | 2019-12-12 23:30 | NUR ---
LEFT LEG WRAP, DRESSING AND PACKING REMOVED AT THIS TIME. PER DR. CHAVEZ'S ORDERS POSTERIOR POPLITEAL SPACE PROBED WITH STERILE GLOVED FINGER AND STERILE Q-TIP FOR ABNORMAL COLORED DRAINAGE OR PUS WITH NONE BEING NOTED AT THIS TIME. PACKING THAT WAS REMOVED FROM THIS AREA WAS NOTED TO BE BROWN/RUTH BUT WITH NO ODOR. MODERATE BLEEDING NOTED WOUND WAS CLEANED WITH STERILE NORMAL SALINE. DAMP PACKING REPLACED AND PACKED INTO POPLITEAL SPACE AND INBETWEEN CALF MUSCLES, COVERED WITH 4X4 AND ABD PADS AND WRAPPED WITH JUDY BANDAGE. PATIENT TOLERATED WELL. DR. CHAVEZ NOTIFIED PER HIS REQUEST OF ABOVE FINDINGS.
--- NOTE | 2019-12-12 23:55 | NUR ---
PATIENT STATED THAT PRN IV MORPHINE WAS EFFECTIVE FOR PAIN CONTROL WITH WOUND DRESSING CHANGE. A&O X4,CALL LIGHT WITHIN REACH WILL CONTINUE TO MONITOR.
[2019-12-13] VITALS: BP 133/58
--- NOTE | 2019-12-13 00:11 | NUR ---
PRN PO NORCO GIVEN AT THIS TIME FOR PATIENT COMPLAINT OF 7/10 PAIN IN HIS LEFT LEG AND KNEE. A&O X4,CALL LIGHT WITHIN REACH, WILL CONTINUE TO MONITOR.
--- NOTE | 2019-12-13 01:00 | NUR ---
PATIENT STATED THAT PAIN IN HIS LEFT LEG WAS NOW A 4/10 AFTER PRN NORCO WAS ADMINISTERED. A&O X4, CALL LIGHT WITHIN REACH,WILL CONTINUE TO MONITOR.
--- NOTE | 2019-12-13 05:00 | NUR ---
PRN NORCO GIVEN PO AT THIS TIME FOR PAIN IN PATIENT LEFT LEG AND KNEE 10/16. A&O X4, CALL LIGHT WITHIN REACH, WILL CONTINUE TO MONITOR.
--- NOTE | 2019-12-13 05:50 | NUR ---
PATIENT STATED THAT PAIN WAS NOW A 4/10 AFTER PRN NORCO WAS GIVEN.
[2019-12-13 06:04] LABS: BASO % 0.3 % (0.0-1.0); EOS # 0.5 10*3/uL (0.0-0.4); HEMATOCRIT 22.6 % (42.0-52.0); LYMPH # 3.1 10*3/uL (1.3-4.4); LYMPH % 24.9 % (27.0-41.0); MEAN CELL VOLUME 87.6 fl (80.0-94.0); MEAN CORPUSCULAR HGB 27.1 pg (27.0-31.0); MONO # 0.9 10*3/uL (0.1-1.0); MONO % 6.9 % (3.0-9.0); NEUT # 7.6 10*3/uL (2.3-7.9); NEUT % 61.5 % (47.0-73.0); PLATELET COUNT AUTOMATED 405 10*3/uL (130-400); RED BLOOD COUNT 2.58 10*6/uL (4.50-5.90); RED CELL DISTRI WIDTH 14.3 % (0-14.5); WHITE BLOOD COUNT 12.4 10*3/uL (4.8-10.8)
[2019-12-13 06:14] LABS: ALBUMIN 1.3 gm/dl (3.1-4.5); ALKALINE PHOSPHATASE 222 U/L (45-117); BUN 15 mg/dl (7-24); CHLORIDE 104 mmol/L (98-107); CREATININE 0.82 mg/dL (0.70-1.30); POTASSIUM 3.7 mmol/L (3.5-5.1); SGOT/AST 9 IU/L (3-35); SGPT/ALT 10 U/L (12-78); SODIUM 137 mmol/L (136-145); TOTAL PROTEIN 5.3 gm/dL (6.4-8.2)
--- NOTE | 2019-12-13 06:26 | NUR ---
NOTIFIED BY LAB OF CALCIUM RESULT OF 6.9.
--- NOTE | 2019-12-13 06:28 | NUR ---
DR. MIRZA NOTIFIED AT THIS TIME OF CALCIUM LEVEL OF 6.9
--- NOTE | 2019-12-13 07:30 | NUR ---
PT RESTING IN BED. RESPS EASY AND NON LABORED. NO S/S OF DISTRESS NOTED.VSS. WHITE BOARD UPDATED. POC DISCUSSED W PT. DRESSING TO LLE C/D/I. PP+. DENIES PAIN AT THIS TIME. WILL CONTINUE TO MONITOR. CALL LIGHT WITHIN REACH.
[2019-12-13 08:00] VITALS: BP 141/67
--- NOTE | 2019-12-13 09:00 | NUR ---
PT C/O 5/10 ACHING LEG PAIN. MEDICATED PER ORDER WILL MONTIOR FOR RELIEF. RESPS EASY AND NON LABORED. CALL LIGHT WITHIN REACH. RESTING IN BED AT THIS TIME.
--- NOTE | 2019-12-13 10:00 | NUR ---
NORCO EFFECTIVE PER PT
[2019-12-13 12:00] VITALS: BP 150/71
--- NOTE | 2019-12-13 13:36 | NUR ---
PT PREMEDICATED W MORPHINE PRIOR TO DRESSING CHANGE. RESPS EASY AND NON LABORED. NO S/S OF DISTRESS NOTED. VSS.
--- NOTE | 2019-12-13 13:45 | NUR ---
PT TOLERATED DRESSING CHANGE WELL-MORPHINE EFFECTIVE. MODERATE AMOUNTS OF BRIGHT RED BLOOD NOTED WELL WHITE/BROWN PUS LIKE DRAINAGE (FROM SUPERIOR ASPECT BEHIND KNEE). WILL INFORM DR CHAVEZ.
--- NOTE | 2019-12-13 14:39 | NUR ---
SPOKE W DR CHAVEZ WHO STATES TO MAKE PT NPO AFTER MIDNIGHT FOR I&D TOMORROW. ALSO INFORMED HIM ABOUT PTS HANDS BEING SWOLLEN.
--- NOTE | 2019-12-13 15:11 | NUR ---
PT C/O 5/10 ACHING LLE PAIN. MEDICATED PER ORDER. WILL MONITOR FOR RELIEF. VOICES NO OTHER CONCERNS. RESPS EASY AND NON LABORED. RESTING IN BED. CALL LIGHT WITHIN REACH.
--- NOTE | 2019-12-13 15:31 | NUR ---
PHYSICAL THERAPY TREATMENT TIME/ DATE 12/13/2019 - SAT. 03:25 PM PRESENTATION: Patient was supine in bed upon this STUMPER FELLER arriving in the patient's room. Head of bed elevated. Bed alarm activated. Patient Response: Patient declined treatment due to not feeling well and being very depressed about having to have 2 more surgical debridements by Dr Rosas. One Surgery is scheduled for tomorrow. Patient is very discouraged. Will check back with patient at a later date. MELY العلي STUMPER FELLER
[2019-12-13 16:00] VITALS: BP 134/66
--- NOTE | 2019-12-13 16:11 | NUR ---
MEDICATION EFFECTIVE PER PT
--- NOTE | 2019-12-13 17:00 | NUR ---
PT TAKEN OFF FLOOR TO CT
--- NOTE | 2019-12-13 17:24 | NUR ---
PT BACK FROM CT
--- NOTE | 2019-12-13 17:46 | NUR ---
CALLED INTO PTS ROOM. MODERATE AMOUNT OF BLEEDING NOTED COMING FROM BEHIND L KNEE. PT STATES IT IS BECAUSE HE STOOD UP TO GET INTO THE WHEELCHAIR. DRESSING RE-ENFORCED W ABD PADS AND JUDY WRAP. WILL CONTINUE TO MONITOR. CALL LIGHT WITHIN REACH.
[2019-12-13 20:00] VITALS: BP 127/59
--- NOTE | 2019-12-13 20:40 | NUR ---
DR. MIRZA NOTIFIED AT THIS TIME OF PATIENT H&H RESULTS OF 7.0/22.6. NO ORDERS AT THIS TIME STATED "WE USUALLY DON'T TRANSFUSE UNTIL LESS THAN 7.0"
--- NOTE | 2019-12-13 21:24 | NUR ---
PRN NORCO GIVEN PO AT THIS TIME FOR COMPLAINT OF PAIN IN LEFT CALF AND KNEE A 10/16. A&O X4, CALL LIGHT WITHIN REACH WILL CONTINUE TO MONITOR.
--- NOTE | 2019-12-13 22:10 | NUR ---
PATIENT STATED THAT PRN NORCO WAS EFFECTIVE TO REDUCE HIS PAIN AT THIS TIME.
--- NOTE | 2019-12-13 22:11 | NUR ---
DR. MIRZA NOTIFIED AT THIS TIME OF PATIENT COMPLAINT OF BURNING UNDER ABDOMINAL FOLD AND THAT THE SITE IS RED AND FUNGAL LOOKING.
--- NOTE | 2019-12-13 23:32 | NUR ---
PRN IV MORPHINE GIVEN AT THIS TIME AT PATIENT REQUEST FOR LEFT LEG DRESSING AND PACKING CHANGE. A&O X4, CALL LIGHT WITHIN REACH. RN AT BEDSIDE FOR DRESSING AND PACKING CHANGE.
--- NOTE | 2019-12-13 23:45 | NUR ---
LEFT CALF DRESSING AND PACKING REMOVED. ENTIRE WOUND FLUSHED WITH STERILE SALINE, MODERATED TO LARGE AMOUNT OF BLOOD AND SEROSANGUINEOUS DRAINAGE NOTED FROM WOUND. PACKING REPLACED ORDERED AND DRESSING REPLACED. PATIENT TOLERATED WELL. WILL CONTINUE TO MONITOR.
[2019-12-14] VITALS (20 sets, daily range): BP systolic 88–220; BP diastolic 45–130
--- NOTE | 2019-12-14 | NUR ---
PRN MORPHINE WAS EFFECTIVE FOR PATIENT PAIN CONTROL DURING WOUND DRESSING CHANGE.
--- NOTE | 2019-12-14 00:25 | NUR ---
PRN NORCO GIVEN AT THIS TIME FOR PATIENT COMPLAINT OF PAIN IN LEFT LEG AND KNEE 10/16. A&O X4, CALL LIGHT WITHIN REACH WILL CONTINUE TO MONITOR.
[2019-12-14 06:13] LABS: MEAN CELL VOLUME 86.5 fl (80.0-94.0); MEAN CORPUSCULAR HGB 27.8 pg (27.0-31.0); MEAN CORPUSCULAR HGB CONC 32.2 g/dl (33.0-37.0); MEAN PLATELET VOLUME 9.1 fl (9.6-12.3); NUCLEATED RED BLOOD CELL 0.2 % (0.0-0.0); PLATELET COUNT AUTOMATED 435 10*3/uL (130-400); RED CELL DISTRI WIDTH 14.4 % (0-14.5); WHITE BLOOD COUNT 12.8 10*3/uL (4.8-10.8)
[2019-12-14 06:17] LABS: HEMATOCRIT 19.9 % (42.0-52.0)
[2019-12-14 06:26] LABS: ALBUMIN 1.4 gm/dl (3.1-4.5); BUN 17 mg/dl (7-24); CHLORIDE 103 mmol/L (98-107); POTASSIUM 3.6 mmol/L (3.5-5.1); SGOT/AST 10 IU/L (3-35); SGPT/ALT 11 U/L (12-78); SODIUM 136 mmol/L (136-145)
[2019-12-14 06:28] LABS: ALKALINE PHOSPHATASE 187 U/L (45-117); CREATININE 0.82 mg/dL (0.70-1.30); TOTAL PROTEIN 5.3 gm/dL (6.4-8.2)
[2019-12-14 07:54] LABS: BASOPHILS 2 % (0-1); TOTAL CELLS COUNTED 100 #CELLS
[2019-12-14 07:55] LABS: PLATELET SUFFICIENCY HIGH (NORMAL); POLYCHROMASIA SLIGHT; ROULEAUX SLIGHT
--- NOTE | 2019-12-14 09:10 | NUR ---
PHYSICAL THERAPY Pt transferred to [facility] 12/14/19 currently in surgery this AM for further debriedment of LLE. Spoke with nursing staff in [facility] pt for possible tranfer to higher level facility pending MD & surgical procedure. Will require new PT/OT evals pending medical status if pt remains at current facility, will follow. Annalee Diaz PT
--- NOTE | 2019-12-14 10:00 | NUR ---
PT RECIEVED IN ICU 6 FROM SURGERY DEPT. PT ALERT AND ORIENTED. BP 144/79 VIA ART LINE TO RIGHT RADIAL ARTERY. POX 97% ON ROOM AIR. PICC LINE INTACT TO RIGHT ARM. DRESSING INTACT TO LEFT LOWER EXTREMITY. PT DENIES ANY PAIN AT THIS TIME.
[2019-12-14] MEDS ORDERED: VITAMIN D350 MC2 PO (11:15)
[2019-12-14 11:49] LABS: URINE CREATININE RANDOM 16.7 mg/dL
--- NOTE | 2019-12-14 12:03 | NUR ---
PT MEDICATED WITH MORPHINE 2MG IV AT HIS REQUEST FOR C/O SURGICAL SITE LEFT LEG PAIN.
--- NOTE | 2019-12-14 12:51 | NUR ---
PT HEART RATE SPIKED UP TO 130'S AND BP VIA ART LINE 220/130. PT C/O HEADACHE AND HEART PALPITATIONS AND STATED HE "JUST FEELS DIFFERENT". BLOOD TRANSFUSION STOPPED AT THIS TIME.
--- NOTE | 2019-12-14 13:00 | NUR ---
DR MARTINEZ NOTIFIED OF REACTION TO UNIT NUMBER [id number].
--- NOTE | 2019-12-14 13:09 | NUR ---
PT'S HEART RATE BACK DOWN TO NSR RATE 99 AND PT NOW HYPOTENSIVE AT 88/50. DR GOMEZ RESIDENT NOTIFIED AND ORDER FOR IVF'S ORDERED.
--- NOTE | 2019-12-14 13:21 | NUR ---
PT STATED SYMPTOMS ARE RESOLVED NOW AND HE IS FEELING BETTER. NSR RATE 101. BP 94/48 VIA ART LINE. POX 96% ON ROOM AIR. DR GOMEZ ORDERED TO HOLD IVF'S AT THIS TIME NOW.
--- NOTE | 2019-12-14 13:40 | NUR ---
PT REQUESTING PAIN PILL. STATED THAT MORPHINE EFFECTS HAVE WORN OFF AND HE IS HAVING SURGICAL SITE LEG PAIN. NORCO 1 TAB PO GIVEN AT THIS TIME. PT IS SITTING UP IN BED EATING LUNCH. NO FURTHER C/O ANY HEADACHE OR CHEST PAIN. HEART RATE 101 AND BP 97/55 AT THIS TIME VIA ART LINE.
[2019-12-14 15:14] LABS: URINE BLOOD,POST TRANSFUSION NEGATIVE
[2019-12-14 15:14] LABS: BASO % 0.2 % (0.0-1.0); EOS # 0.1 10*3/uL (0.0-0.4); EOS % 0.6 % (1.0-4.0); HEMATOCRIT 26.3 % (42.0-52.0); LYMPH % 11.9 % (27.0-41.0); MEAN CELL VOLUME 85.4 fl (80.0-94.0); MEAN CORPUSCULAR HGB 27.9 pg (27.0-31.0); MEAN CORPUSCULAR HGB CONC 32.7 g/dl (33.0-37.0); MEAN PLATELET VOLUME 8.7 fl (9.6-12.3); MONO # 1.1 10*3/uL (0.1-1.0); MONO % 6.6 % (3.0-9.0); NEUT # 13.3 10*3/uL (2.3-7.9); NEUT % 79.2 % (47.0-73.0); PLATELET COUNT AUTOMATED 366 10*3/uL (130-400); RED BLOOD COUNT 3.08 10*6/uL (4.50-5.90); WHITE BLOOD COUNT 16.9 10*3/uL (4.8-10.8)
[2019-12-14 15:31] LABS: URINE RBC,POST TRANSFUSION 0-2 rbc/hpf (0-2)
--- NOTE | 2019-12-14 17:57 | NUR ---
PT MEDICATED WITH NORCO AT HIS REQUEST FOR C/O LEFT LEG SURGICAL SITE PAIN.
--- NOTE | 2019-12-14 18:16 | NUR ---
[facility] HERE TO TRANSPORT PT TO [facility].
--- NOTE | 2019-12-14 18:28 | NUR ---
REPORT GIVEN TO YULIANA BAH AT [facility]. [phone]. PT GOING TO 6FG BED 14.
--- NOTE | 2019-12-16 15:19 | NUR ---
Received call from Baldev at [facility]. Notified patient was transferred to [facility] on 12/13.
== END 2019-12-14 18:58 | disposition short-term general hospital (02) | DRG 570 ==
LOC: ED 16:21 → 5E 18:35 → EDHOLD 18:35 → 5E 18:35 → ICCU 12-14 08:10
PROVIDERS: Family Medicine; Internal Medicine; Nurse Practitioner; Psychiatry & Neurology Psychiatry; Student in an Organized Health Care Education/Training Program; ADMIT Internal Medicine; ATTEND Internal Medicine
PROC: 0JBP0ZZ Excision of Left Lower Leg Subcutaneous Tissue and Fascia, Open Approach (ICD-10-PCS; principal; 2019-12-10)
PROC: 02HV33Z Insertion of Infusion Device into Superior Vena Cava, Percutaneous Approach (ICD-10-PCS; 2019-12-12)
PROC: 0BH17EZ Insertion of Endotracheal Airway into Trachea, Via Natural or Artificial Opening (ICD-10-PCS; 2019-12-14)
PROC: 0QBC0ZX Excision of Left Lower Femur, Open Approach, Diagnostic (ICD-10-PCS; 2019-12-14)
PROC: 0LBP0ZZ Excision of Left Lower Leg Tendon, Open Approach (ICD-10-PCS; 2019-12-14)
PROC: 5A1935Z Respiratory Ventilation, Less than 24 Consecutive Hours (ICD-10-PCS; 2019-12-14)
DX: L03.116 Cellulitis of left lower limb (principal); E43 Unspecified severe protein-calorie malnutrition; M72.6 Necrotizing fasciitis; M60.009 Infective myositis, unspecified site; E87.1 Hypo-osmolality and hyponatremia; M86.162 Other acute osteomyelitis, left tibia and fibula; L02.416 Cutaneous abscess of left lower limb; E87.6 Hypokalemia; M25.562 Pain in left knee; D47.3 Essential (hemorrhagic) thrombocythemia; E11.65 Type 2 diabetes mellitus with hyperglycemia; R26.81 Unsteadiness on feet; D72.829 Elevated white blood cell count, unspecified; D72.810 Lymphocytopenia; M10.062 Idiopathic gout, left knee; B95.61 Methicillin susceptible Staphylococcus aureus infection as the cause of diseases classified elsewhere; D63.8 Anemia in other chronic diseases classified elsewhere; E11.69 Type 2 diabetes mellitus with other specified complication; Z20.828 Contact with and (suspected) exposure to other viral communicable diseases; Z79.4 Long term (current) use of insulin; Z84.89 Family history of other specified conditions; Z78.9 Other specified health status; Z68.28 Body mass index [BMI] 28.0-28.9, adult; Z79.899 Other long term (current) drug therapy

== ENCOUNTER → 2020-01-06 | Outpatient (CLI) | payer MEDICARE ==
[~2020-01-06] MED LIST: CLINDAMYCIN HC300 MG PO; COLCHICINE0.6 M1 PO; HUMALOG100 UNIT/2 SQ; LANTUS SOL100 UNIT/1 SQ; NAFCILLIN2 GM IV; NAPROSYN500 MG PO; VITAMIN D350 MC2 PO
== END | disposition home or self-care (01) ==
LOC: RESCLI 10:23
PROVIDERS: ATTEND Student in an Organized Health Care Education/Training Program
DX: E11.9 Type 2 diabetes mellitus without complications (principal); M10.9 Gout, unspecified; M72.6 Necrotizing fasciitis; K59.00 Constipation, unspecified; G62.9 Polyneuropathy, unspecified; R05 Cough; Z79.899 Other long term (current) drug therapy; Z98.890 Other specified postprocedural states

== ENCOUNTER 2020-01-10 11:43 | Emergency (ER) | payer MEDICARE, MEDICAID ==
[~2020-01-10] VITALS: Ht 165.1 cm; Wt 97.1 kg
[~2020-01-10 11:43] MED LIST changes: -CLINDAMYCIN HC300 MG PO
[2020-01-10] MEDS ORDERED: CLINDAMYCIN HC300 MG PO (12:31)
[2020-01-10] MEDS ORDERED: NAPROSYN500 MG PO (12:31)
== END 2020-01-10 12:40 | disposition home or self-care (01) ==
LOC: ED 11:43
DX: K04.7 Periapical abscess without sinus (principal); E11.9 Type 2 diabetes mellitus without complications; M10.9 Gout, unspecified; Z79.899 Other long term (current) drug therapy; Z79.4 Long term (current) use of insulin

== ENCOUNTER → 2020-01-28 | Outpatient (CLI) | payer MEDICARE, MEDICAID ==
[~2020-01-28] MED LIST changes: +CLINDAMYCIN HC300 MG PO
== END | disposition home or self-care (01) ==
LOC: ORTHO 12:15
PROVIDERS: ATTEND Orthopaedic Surgery
DX: M25.562 Pain in left knee (principal)

== ENCOUNTER → 2020-02-11 | Outpatient (CLI) | payer MEDICARE, MEDICAID | END | disposition home or self-care (01) | LOC: RESCLI 05:11 | PROVIDERS: ATTEND Student in an Organized Health Care Education/Training Program | DX: G62.9 Polyneuropathy, unspecified (principal); E11.9 Type 2 diabetes mellitus without complications; R21 Rash and other nonspecific skin eruption; D64.9 Anemia, unspecified ==

== ENCOUNTER → 2020-03-12 | Outpatient (CLI) | payer MEDICARE, MEDICAID | END | disposition home or self-care (01) | LOC: COVID19 16:29 | PROVIDERS: ATTEND Internal Medicine | DX: U07.1 COVID-19 (principal) ==

== ENCOUNTER → 2020-04-15 | Outpatient (CLI) | payer MEDICARE, MEDICAID | END | disposition home or self-care (01) | LOC: RESCLI 00:56 | PROVIDERS: ATTEND Internal Medicine | DX: E11.9 Type 2 diabetes mellitus without complications (principal); G62.9 Polyneuropathy, unspecified; K59.00 Constipation, unspecified; M72.6 Necrotizing fasciitis; M10.9 Gout, unspecified; Z79.899 Other long term (current) drug therapy ==

== ENCOUNTER → 2020-09-07 | Outpatient (CLI) | payer MEDICARE, MEDICAID | LOC: RESCLI 00:39 | PROVIDERS: ATTEND Internal Medicine | DX: D64.9 Anemia, unspecified (principal); I10 Essential (primary) hypertension; G62.9 Polyneuropathy, unspecified; E11.9 Type 2 diabetes mellitus without complications; Z79.84 Long term (current) use of oral hypoglycemic drugs; Z79.899 Other long term (current) drug therapy; Z98.890 Other specified postprocedural states ==

== ENCOUNTER → 2020-10-26 | Outpatient (CLI) | payer MEDICARE, MEDICAID | END | disposition home or self-care (01) | LOC: RESCLI 02:29 | PROVIDERS: ATTEND Internal Medicine | DX: I10 Essential (primary) hypertension (principal); E11.9 Type 2 diabetes mellitus without complications; K59.00 Constipation, unspecified; G62.9 Polyneuropathy, unspecified; D64.9 Anemia, unspecified; Z79.899 Other long term (current) drug therapy; Z98.890 Other specified postprocedural states ==

== ENCOUNTER → 2020-11-29 | Outpatient (CLI) | payer MEDICARE, MEDICAID ==
[2020-11-29 09:07] LABS: BUN 44 mg/dl (7-24); CHLORIDE 108 mmol/L (98-107); CREATININE 1.12 mg/dL (0.70-1.30); POTASSIUM 4.8 mmol/L (3.5-5.1); SODIUM 139 mmol/L (136-145)
== END | disposition home or self-care (01) ==
LOC: LAB 08:15
PROVIDERS: ATTEND Internal Medicine
DX: E11.9 Type 2 diabetes mellitus without complications (principal)

== ENCOUNTER → 2020-12-17 | Outpatient (CLI) | payer MEDICARE, MEDICAID | END | disposition home or self-care (01) | LOC: ORTHO 00:27 | PROVIDERS: ATTEND Orthopaedic Surgery | DX: M17.12 Unilateral primary osteoarthritis, left knee (principal); M11.262 Other chondrocalcinosis, left knee; M86.8X6 Other osteomyelitis, lower leg ==

== ENCOUNTER 2021-01-28 15:27 | Emergency (ER) | payer MEDICARE, MEDICAID ==
[~2021-01-28] VITALS: Ht 165.1 cm; Wt 76.2 kg
[2021-01-28 16:04] LABS: BASO # 0.1 10*3/uL (0.0-0.1); BASO % 0.7 % (0.0-1.0); EOS # 0.5 10*3/uL (0.0-0.4); EOS % 4.1 % (1.0-4.0); HEMATOCRIT 36.2 % (42.0-52.0); LYMPH # 3.9 10*3/uL (1.3-4.4); LYMPH % 35.2 % (27.0-41.0); MEAN CELL VOLUME 87.9 fl (80.0-94.0); MEAN CORPUSCULAR HGB 29.4 pg (27.0-31.0); MEAN CORPUSCULAR HGB CONC 33.4 g/dl (33.0-37.0); MEAN PLATELET VOLUME 10.1 fl (9.6-12.3); MONO # 0.7 10*3/uL (0.1-1.0); MONO % 6.4 % (3.0-9.0); NEUT % 53.2 % (47.0-73.0); PLATELET COUNT AUTOMATED 234 10*3/uL (130-400); RED BLOOD COUNT 4.12 10*6/uL (4.50-5.90); RED CELL DISTRI WIDTH 12.7 % (0-14.5); WHITE BLOOD COUNT 11.2 10*3/uL (4.8-10.8)
[2021-01-28 16:16] LABS: ACT PARTIAL THROMBO TIME 28.4 SECONDS (20.0-32.1); INTERNATIONAL NORM RATIO 0.9 (2.0-3.5)
[2021-01-28 16:22] LABS: ALBUMIN 3.7 gm/dl (3.1-4.5); ALKALINE PHOSPHATASE 52 U/L (45-117); BUN 32 mg/dl (7-24); CHLORIDE 105 mmol/L (98-107); CREATININE 0.96 mg/dL (0.70-1.30); LIPASE 151 U/L (73-393); POTASSIUM 4.3 mmol/L (3.5-5.1); SGOT/AST 21 IU/L (3-35); SGPT/ALT 31 U/L (12-78); SODIUM 138 mmol/L (136-145); TOTAL PROTEIN 6.9 gm/dL (6.4-8.2)
[2021-01-28 16:25] LABS: TROPONIN I < 0.015 ng/ml (<0.045)
== END 2021-01-28 18:06 | disposition home or self-care (01) ==
LOC: ED 15:27
PROVIDERS: Emergency Medicine
DX: I10 Essential (primary) hypertension (principal)

== ENCOUNTER → 2021-07-25 | Outpatient (CLI) | payer OTHER, MEDICAID ==
[2021-07-25 10:22] LABS: BUN 44 mg/dl (7-24); CHLORIDE 108 mmol/L (98-107); CREATININE 1.02 mg/dL (0.70-1.30); SODIUM 141 mmol/L (136-145)
== END | disposition home or self-care (01) ==
LOC: LAB 08:52
PROVIDERS: ATTEND Internal Medicine
DX: E11.9 Type 2 diabetes mellitus without complications (principal)

== ENCOUNTER → 2021-10-18 | Outpatient (CLI) | payer OTHER, MEDICAID | END | disposition home or self-care (01) | LOC: RESCLI 05:19 | PROVIDERS: ATTEND Internal Medicine | DX: E11.9 Type 2 diabetes mellitus without complications (principal); K59.00 Constipation, unspecified; G62.9 Polyneuropathy, unspecified; E78.5 Hyperlipidemia, unspecified; E55.9 Vitamin D deficiency, unspecified; I10 Essential (primary) hypertension; Z79.899 Other long term (current) drug therapy; Z79.82 Long term (current) use of aspirin; Z79.01 Long term (current) use of anticoagulants ==

== ENCOUNTER → 2021-10-24 | Outpatient (CLI) | payer OTHER, MEDICAID ==
[2021-10-24 10:16] LABS: CHOLESTEROL 69 mg/dL (<200); LDL CHOLESTEROL 10 mg/dL (9-159); TRIGLYCERIDES 64 mg/dl (<150)
== END | disposition home or self-care (01) ==
LOC: LAB 08:53
PROVIDERS: Internal Medicine; ATTEND Internal Medicine
DX: E78.5 Hyperlipidemia, unspecified (principal)

== ENCOUNTER → 2022-04-25 | Outpatient (CLI) | payer OTHER, MEDICAID ==
[2022-04-25 13:58] LABS: BASO # 0.1 10*3/uL (0.0-0.1); BASO % 1.3 % (0.0-1.0); EOS # 0.4 10*3/uL (0.0-0.4); EOS % 4.7 % (1.0-4.0); HEMATOCRIT 37.3 % (42.0-52.0); LYMPH # 2.9 10*3/uL (1.3-4.4); LYMPH % 34.2 % (27.0-41.0); MEAN CELL VOLUME 89.2 fl (80.0-94.0); MEAN CORPUSCULAR HGB 28.2 pg (27.0-31.0); MEAN CORPUSCULAR HGB CONC 31.6 g/dl (33.0-37.0); MEAN PLATELET VOLUME 10.1 fl (9.6-12.3); MONO # 0.6 10*3/uL (0.1-1.0); MONO % 7.4 % (3.0-9.0); NEUT # 4.5 10*3/uL (2.3-7.9); PLATELET COUNT AUTOMATED 250 10*3/uL (130-400); RED BLOOD COUNT 4.18 10*6/uL (4.50-5.90); RED CELL DISTRI WIDTH 12.2 % (0-14.5); WHITE BLOOD COUNT 8.6 10*3/uL (4.8-10.8)
[2022-04-25 14:17] LABS: ALKALINE PHOSPHATASE 49 U/L (46-116); BUN 32 mg/dl (9-23); CHLORIDE 100 mmol/L (98-107); POTASSIUM 4.4 mmol/L (3.4-5.1); SGPT/ALT 15 U/L (10-49); TOTAL PROTEIN 6.7 gm/dL (6.0-8.0)
[2022-04-25 14:54] LABS: VITAMIN D, 25-HYDROXY 53.6 ng/mL (30-100)
[2022-04-26 12:07] LABS: CREATININE,URINE 32.7 mg/dL (Not Estab.)
== END | disposition home or self-care (01) ==
LOC: RESCLI 01:07
PROVIDERS: Internal Medicine; ATTEND Internal Medicine
DX: E11.9 Type 2 diabetes mellitus without complications (principal); K59.00 Constipation, unspecified; G62.9 Polyneuropathy, unspecified; I10 Essential (primary) hypertension; E78.5 Hyperlipidemia, unspecified; E55.9 Vitamin D deficiency, unspecified; Z12.5 Encounter for screening for malignant neoplasm of prostate; Z98.890 Other specified postprocedural states; Z79.84 Long term (current) use of oral hypoglycemic drugs; Z79.82 Long term (current) use of aspirin; Z79.899 Other long term (current) drug therapy

== ENCOUNTER → 2022-10-18 | Outpatient (CLI) | payer OTHER, MEDICAID ==
[2022-10-18 09:59] LABS: BASO # 0.1 10*3/uL (0.0-0.1); BASO % 0.9 % (0.0-1.0); EOS # 0.5 10*3/uL (0.0-0.4); EOS % 5.5 % (1.0-4.0); LYMPH # 2.3 10*3/uL (1.3-4.4); LYMPH % 24.9 % (27.0-41.0); MEAN CELL VOLUME 87.6 fl (80.0-94.0); MEAN CORPUSCULAR HGB 28.4 pg (27.0-31.0); MEAN CORPUSCULAR HGB CONC 32.4 g/dl (33.0-37.0); MEAN PLATELET VOLUME 10.3 fl (9.6-12.3); MONO # 0.6 10*3/uL (0.1-1.0); MONO % 6.7 % (3.0-9.0); NEUT # 5.8 10*3/uL (2.3-7.9); NEUT % 61.7 % (47.0-73.0); PLATELET COUNT AUTOMATED 209 10*3/uL (130-400); RED BLOOD COUNT 3.88 10*6/uL (4.50-5.90); RED CELL DISTRI WIDTH 12.9 % (0-14.5); WHITE BLOOD COUNT 9.4 10*3/uL (4.8-10.8)
[2022-10-18 10:23] LABS: ALKALINE PHOSPHATASE 54 U/L (46-116); BUN 25 mg/dl (9-23); CHLORIDE 105 mmol/L (98-107); CHOLESTEROL 75 mg/dL (<200); LDL CHOLESTEROL 12 mg/dL (9-159); POTASSIUM 4.3 mmol/L (3.4-5.1); SGPT/ALT 12 U/L (10-49); TOTAL PROTEIN 6.3 gm/dL (6.0-8.0); TRIGLYCERIDES 122 mg/dl (<150)
== END | disposition home or self-care (01) ==
LOC: RESCLI 01:46
PROVIDERS: Internal Medicine; ATTEND Internal Medicine
DX: E11.9 Type 2 diabetes mellitus without complications (principal); M10.9 Gout, unspecified; K59.00 Constipation, unspecified; G62.9 Polyneuropathy, unspecified; E78.5 Hyperlipidemia, unspecified; E55.9 Vitamin D deficiency, unspecified; I10 Essential (primary) hypertension; Z98.890 Other specified postprocedural states; Z79.84 Long term (current) use of oral hypoglycemic drugs; Z79.899 Other long term (current) drug therapy

== ENCOUNTER → 2023-04-18 | Outpatient (CLI) | payer OTHER, MEDICAID ==
[2023-04-18 09:35] LABS: BASO # 0.1 10*3/uL (0.0-0.1); BASO % 1.1 % (0.0-1.0); EOS # 0.5 10*3/uL (0.0-0.4); EOS % 5.3 % (1.0-4.0); HEMATOCRIT 35.9 % (42.0-52.0); LYMPH # 2.9 10*3/uL (1.3-4.4); LYMPH % 32.5 % (27.0-41.0); MEAN CELL VOLUME 91.3 fl (80.0-94.0); MEAN CORPUSCULAR HGB CONC 30.6 g/dl (33.0-37.0); MEAN PLATELET VOLUME 10.4 fl (9.6-12.3); MONO # 0.7 10*3/uL (0.1-1.0); MONO % 7.6 % (3.0-9.0); NEUT # 4.7 10*3/uL (2.3-7.9); NEUT % 53.2 % (47.0-73.0); PLATELET COUNT AUTOMATED 250 10*3/uL (130-400); RED BLOOD COUNT 3.93 10*6/uL (4.50-5.90); RED CELL DISTRI WIDTH 13.1 % (0-14.5); WHITE BLOOD COUNT 8.8 10*3/uL (4.8-10.8)
[2023-04-18 10:00] LABS: ALKALINE PHOSPHATASE 58 U/L (46-116); BUN 30 mg/dl (9-23); CHLORIDE 107 mmol/L (98-107); POTASSIUM 5.1 mmol/L (3.4-5.1); SGPT/ALT 13 U/L (5-49); TOTAL PROTEIN 6.9 gm/dL (6.0-8.0)
== END | disposition home or self-care (01) ==
LOC: RESCLI 00:26
PROVIDERS: Internal Medicine; ATTEND Student in an Organized Health Care Education/Training Program
DX: E11.9 Type 2 diabetes mellitus without complications (principal); E78.5 Hyperlipidemia, unspecified; K59.00 Constipation, unspecified; E55.9 Vitamin D deficiency, unspecified; I10 Essential (primary) hypertension; G62.9 Polyneuropathy, unspecified; Z98.890 Other specified postprocedural states; Z79.899 Other long term (current) drug therapy; Z79.84 Long term (current) use of oral hypoglycemic drugs

== ENCOUNTER → 2023-09-19 | Outpatient (CLI) | payer OTHER, MEDICAID ==
[2023-09-19 09:45] LABS: BUN 25 mg/dl (9-23); CHLORIDE 104 mmol/L (98-107); CHOLESTEROL 81 mg/dL (<200); LDL CHOLESTEROL 20 mg/dL (9-159); POTASSIUM 4.9 mmol/L (3.4-5.1); TRIGLYCERIDES 75 mg/dl (<150)
[2023-09-19 12:57] LABS: URINE CREATININE RANDOM 55.68 mg/dL
== END | disposition home or self-care (01) ==
LOC: RESCLI 02:20
PROVIDERS: Internal Medicine; ATTEND Internal Medicine
DX: E11.9 Type 2 diabetes mellitus without complications (principal); M10.9 Gout, unspecified; I10 Essential (primary) hypertension; G62.9 Polyneuropathy, unspecified; E78.5 Hyperlipidemia, unspecified; E55.9 Vitamin D deficiency, unspecified; Z79.899 Other long term (current) drug therapy; Z88.8 Allergy status to other drugs, medicaments and biological substances; Z98.890 Other specified postprocedural states

== ENCOUNTER → 2023-12-20 | Outpatient (CLI) | payer OTHER, MEDICAID | END | disposition home or self-care (01) | LOC: RESCLI 12-17 03:43 | PROVIDERS: ATTEND Student in an Organized Health Care Education/Training Program | DX: R00.2 Palpitations (principal); I10 Essential (primary) hypertension; G62.9 Polyneuropathy, unspecified; E78.5 Hyperlipidemia, unspecified; E11.40 Type 2 diabetes mellitus with diabetic neuropathy, unspecified; K59.00 Constipation, unspecified; E55.9 Vitamin D deficiency, unspecified; Z79.899 Other long term (current) drug therapy; Z98.890 Other specified postprocedural states ==

== ENCOUNTER → 2024-06-12 | Outpatient (CLI) | payer OTHER, MEDICAID | END | disposition home or self-care (01) | LOC: RESCLI 10:35 | PROVIDERS: ATTEND Internal Medicine | DX: E11.9 Type 2 diabetes mellitus without complications (principal); I10 Essential (primary) hypertension; G62.9 Polyneuropathy, unspecified; E78.5 Hyperlipidemia, unspecified; K59.00 Constipation, unspecified; E55.9 Vitamin D deficiency, unspecified; Z79.899 Other long term (current) drug therapy ==

== ENCOUNTER → 2024-07-10 | Outpatient (CLI) | payer OTHER, MEDICAID ==
[2024-07-10 11:21] LABS: BASO # 0.1 10*3/uL (0.0-0.1); BASO % 0.9 % (0.0-1.0); EOS # 0.4 10*3/uL (0.0-0.4); EOS % 4.8 % (1.0-4.0); HEMATOCRIT 35.2 % (42.0-52.0); MEAN CELL VOLUME 91.4 fl (80.0-94.0); MEAN CORPUSCULAR HGB 28.6 pg (27.0-31.0); MEAN CORPUSCULAR HGB CONC 31.3 g/dl (33.0-37.0); MEAN PLATELET VOLUME 10.6 fl (9.6-12.3); MONO # 0.7 10*3/uL (0.1-1.0); MONO % 8.2 % (3.0-9.0); NEUT # 5.3 10*3/uL (2.3-7.9); NEUT % 58.4 % (47.0-73.0); PLATELET COUNT AUTOMATED 253 10*3/uL (130-400); RED BLOOD COUNT 3.85 10*6/uL (4.50-5.90); RED CELL DISTRI WIDTH 12.7 % (0-14.5)
[2024-07-10 11:31] LABS: ALKALINE PHOSPHATASE 54 U/L (46-116); BUN 38 mg/dl (9-23); CHLORIDE 102 mmol/L (98-107); POTASSIUM 4.4 mmol/L (3.4-5.1); SGPT/ALT 14 U/L (5-49); TOTAL PROTEIN 6.8 gm/dL (6.0-8.0)
== END | disposition home or self-care (01) ==
LOC: LAB 02:04 → RESCLI 02:04
PROVIDERS: Student in an Organized Health Care Education/Training Program; ATTEND Internal Medicine
DX: I10 Essential (primary) hypertension (principal); E11.9 Type 2 diabetes mellitus without complications

== ENCOUNTER → 2024-10-16 | Outpatient (CLI) | payer OTHER, MEDICAID | END | disposition home or self-care (01) | LOC: RESCLI 02:21 | PROVIDERS: ATTEND Student in an Organized Health Care Education/Training Program | DX: I10 Essential (primary) hypertension (principal); E11.40 Type 2 diabetes mellitus with diabetic neuropathy, unspecified; E78.5 Hyperlipidemia, unspecified; K59.00 Constipation, unspecified; E55.9 Vitamin D deficiency, unspecified; M10.9 Gout, unspecified; Z79.899 Other long term (current) drug therapy ==

== ENCOUNTER → 2025-01-13 | Outpatient (CLI) | payer OTHER, MEDICAID ==
[2025-01-13 08:16] LABS: BASO # 0.1 10*3/uL (0.0-0.1); BASO % 0.8 % (0.0-1.0); EOS # 0.4 10*3/uL (0.0-0.4); EOS % 4.4 % (1.0-4.0); MEAN CELL VOLUME 90.0 fl (80.0-94.0); MEAN CORPUSCULAR HGB 28.4 pg (27.0-31.0); MEAN PLATELET VOLUME 10.1 fl (9.6-12.3); MONO # 0.7 10*3/uL (0.1-1.0); MONO % 7.4 % (3.0-9.0); NEUT # 5.3 10*3/uL (2.3-7.9); NEUT % 53.5 % (47.0-73.0); NUCLEATED RED BLOOD CELL 0.0 % (0.0-0.0); NUCLEATED RED BLOOD CELL 0.0 10*3/uL (0.0-0.0); PLATELET COUNT AUTOMATED 232 10*3/uL (130-400); RED CELL DISTRI WIDTH 12.5 % (0-14.5)
[2025-01-13 08:52] LABS: BUN 41.0 mg/dl (9-23); LDL CHOLESTEROL 4.0 mg/dL (9-159); SGPT/ALT 15.0 U/L (5-49)
== END | disposition home or self-care (01) ==
LOC: LAB 07:57
PROVIDERS: Student in an Organized Health Care Education/Training Program; ATTEND Internal Medicine
DX: I10 Essential (primary) hypertension (principal); E11.9 Type 2 diabetes mellitus without complications; E78.5 Hyperlipidemia, unspecified; E55.9 Vitamin D deficiency, unspecified

== ENCOUNTER → 2025-01-16 | Outpatient (CLI) | payer OTHER, MEDICAID | END | disposition home or self-care (01) | LOC: RESCLI | PROVIDERS: ATTEND Internal Medicine | DX: I10 Essential (primary) hypertension (principal); E11.40 Type 2 diabetes mellitus with diabetic neuropathy, unspecified; E78.5 Hyperlipidemia, unspecified; K59.00 Constipation, unspecified; E55.9 Vitamin D deficiency, unspecified; M10.9 Gout, unspecified; Z79.899 Other long term (current) drug therapy ==